=== PATIENT | male | born 1935 | race Caucasian/White ===

== ENCOUNTER 2017-07-26 11:30 | Emergency (ER) | payer BC, MEDICARE ==
[2017-07-26 11:57] LABS: #Eosinphils 0.1 thou/uL (0.0-0.7); #Monocytes 1.7 thou/uL (0.11-0.59); #Neutrophils 12.6 thou/uL (1.40-6.50); %Basophils 0.1 % (0.0-1.0); %Eosinophils 0.3 % (0.0-10.0); %Lymphocytes 6.5 % (21.0-51.0); %Monocytes 10.7 % (0.0-10.0); %Neutrophils 82.3 % (42.0-75.0); Hemoglobin 13.5 g/dL (14.0-18.0); Mean Corpuscular HGB CONC 32.5 g/dL (32.0-36.0); Mean Corpuscular Hemoglobin 31.9 pg (27.0-31.0); Mean Corpuscular Volume 98.1 fl (80.0-94.0); Mean Platelet Volume 7.4 fL (7.4-10.4); Platelet Count 289 thou/uL (130-400); RBC Distribution Width 12.3 % (11.5-14.5); Red Blood Cell (RBC) Count 4.22 mill/uL (4.70-6.10); White Blood Cell (WBC) Count 15.4 thou/uL (4.8-10.8)
[2017-07-26 12:10] LABS: Bilirubin Small (Negative); Blood, Urine Negative (Negative); Clarity CLOUDY (Clear); Glucose, Urine (Dipstick) Negative (Negative); Leukocyte Small (Negative); Nitrite Negative (Negative); Protein, Urine (Dipstick) 30 mg/dL (Neg-Trace); Specific Gravity, Urine 1.027 (1.002-1.036); pH, Urine 5.5 (5.0-9.0)
[2017-07-26 12:14] LABS: Pathc Cast-AUWi Flag 17.88 (0-2.49)
[2017-07-26 12:29] LABS: Bacteria/HPF 2+ HPF (None Seen); Hyaline Casts/LPF 4-6 HYALINE CAST LPF (0-3 Hyaline); Manual Microscopic Reviewed? No Path Casts Seen; RBC/HPF 0-3 HPF (0-3); Transitional Epithelial NONE SEEN HPF (0-3)
[2017-07-26 12:29] LABS: ALT (SGPT) 27 U/L (8-55); AST (SGOT) 26 U/L (5-34); Albumin 3.7 g/dL (3.4-4.8); Alkaline Phosphatase 73 U/L (40-150); Anion Gap 14 mmol/L (10-20); BUN (Urea Nitrogen) 17 mg/dL (8.4-25.7); Bilirubin, Total 0.9 mg/dL (0.2-1.2); CRP (Inflammatory) 26.88 mg/dL (= or < 0.5); Calc. Creatinine Clearance 0 mL/min (70-130); Calcium 9.3 mg/dL (7.8-10.44); Carbon Dioxide 22 mmol/L (23-31); Chloride 102 mmol/L (98-107); Estimated GFR-MDRD 57; Globulin 3.2 g/dL (2.4-3.5); Glucose 111 mg/dL (83-110); Lipase 6 U/L (8-78); Potassium 4.3 mmol/L (3.5-5.1); Protein, Total 6.9 g/dL (5.8-8.1); Sodium 134 mmol/L (136-145)
--- NOTE | 2017-07-26 14:50 | CT ---
CT ABDOMEN AND PELVIS WITH CONTRAST: TECHNIQUE: Multiple axial tomograms obtained through the abdomen and pelvis with iv enhancement. Oral contrast was given. HISTORY: Right lower quadrant pain. FINDINGS: Images through the lung bases show a small focal density anterior right cardiophrenic angle region wh ich appears most consistent with a small focus of pleural-based rounded atelectasis. A tiny low-density focus in the right lobe of the liver is subcentimeter and is too small to adequate ly characterize, possibly tiny cyst. Liver and spleen otherwise unremarkable. Pancreas is unremarka ble. A small fixed sliding diaphragmatic hernia. Adrenal glands unremarkable. There is a cyst in the posterior left kidney measuring 2.8 cm. Kidneys are otherwise unremarkable. No hydronephrosis. The ureter is normal caliber. The urinary bladder is mostly contracted and appears unremarkable. No significant prostatic hypertrophy. Small bowel loops appear unremarkable. The cecum is coiled in the upper right abdomen. The appendix is partially opacified and appears unremarkable. There is a sharp kink in the right colon just above the cecum in the right upper abdomen. Associated with this is mucosal soft tissue opacity which measures up to 2.5 to 3 cm. A mucosal mass at this s ite cannot be excluded and recommend further investigation with colonoscopy. Aorta is normal caliber. No adenopathy identified. IMPRESSION: 1. Area of soft tissue density involving the mucosa of the right colon just above the cecum at the s ite of kinking of the right colon. A mucosal mass should be excluded as discussed above. 2. Left renal cyst. 3. Otherwise, no acute process identified. POS: [facility]
--- NOTE | 2017-07-26 15:48 | RAD ---
FRONTAL VIEW CHEST: Date: 07/26/17 No prior comparison. CLINICAL HISTORY: Cough and fever. FINDINGS: There is abnormal alveolar consolidation localizing to the right upper lobe. Cardiac silhouette is ac centuated by portable technique. Mild patchy left basilar density is present. IMPRESSION: Evidence to indicate right upper lobe pneumonia. Recommend radiographic follow-up upon resolution of acute symptoms and treatment regimen completion to confirm resolution of findings. CODE T. POS: [facility]
[2017-07-26] MEDS ORDERED: ISOVUE-370 76%-LOCM 1 ML ONE (16:06)
[2017-07-26] MEDS ORDERED: Iopamidol 370 76% 50 ML VIAL FS ONE (16:06)
== END 2017-07-26 17:00 | disposition home or self-care (01) ==
LOC: ERS 11:30
DX: K63.89 Other specified diseases of intestine (principal); N39.0 Urinary tract infection, site not specified; I10 Essential (primary) hypertension
CPT/HCPCS: 36415; 71045; 74177; 80053; 81003; 81015; 82550; 83605; 83690; 85025; 86140; 87040; 96361; 96365

== ENCOUNTER 2017-09-28 08:18 | Outpatient (CLI) | payer MEDICARE, BC | END 2017-09-28 08:19 | disposition home or self-care (01) | LOC: BICMRI 08:18 | PROVIDERS: ATTEND Anesthesiology Pain Medicine | DX: M47.896 Other spondylosis, lumbar region (principal); M99.83 Other biomechanical lesions of lumbar region | CPT/HCPCS: 72100; 72148 ==

== ENCOUNTER 2017-11-11 15:06 | Outpatient (CLI) | payer MEDICARE, BC | END 2017-11-11 15:07 | disposition home or self-care (01) | LOC: BICRAD 15:06 | PROVIDERS: ATTEND Family Medicine | DX: M18.11 Unilateral primary osteoarthritis of first carpometacarpal joint, right hand (principal); M19.041 Primary osteoarthritis, right hand ==

== ENCOUNTER 2018-06-07 06:44 | Outpatient (CLI) | payer MEDICARE, BC ==
[2018-06-07 11:04] LABS: #Eosinphils 0.1 thou/uL (0.0-0.7); #Lymphocytes 1.6 thou/uL (1.20-3.40); #Monocytes 0.7 thou/uL (0.11-0.59); #Neutrophils 4.3 thou/uL (1.40-6.50); %Basophils 0.6 % (0.0-1.0); %Eosinophils 1.6 % (0.0-10.0); %Lymphocytes 23.4 % (21.0-51.0); %Monocytes 10.5 % (0.0-10.0); Hemoglobin 14.6 g/dL (14.0-18.0); Mean Corpuscular HGB CONC 32.8 g/dL (32.0-36.0); Mean Corpuscular Hemoglobin 30.7 pg (27.0-31.0); Mean Corpuscular Volume 93.6 fL (78.0-98.0); Mean Platelet Volume 7.9 fL (7.4-10.4); Platelet Count 203 thou/uL (130-400); RBC Distribution Width 12.2 % (11.5-14.5); Red Blood Cell (RBC) Count 4.74 mill/uL (4.70-6.10); White Blood Cell (WBC) Count 6.7 thou/uL (4.8-10.8)
[2018-06-07 11:24] LABS: ALT (SGPT) 47 U/L (8-55); AST (SGOT) 33 U/L (5-34); Albumin 4.4 g/dL (3.4-4.8); Alkaline Phosphatase 70 U/L (40-150); Anion Gap 15 mmol/L (10-20); BUN (Urea Nitrogen) 17 mg/dL (8.4-25.7); Bilirubin, Total 1.6 mg/dL (0.2-1.2); Calc. Creatinine Clearance 0 mL/min (70-130); Calcium 9.7 mg/dL (7.8-10.44); Carbon Dioxide 25 mmol/L (23-31); Chloride 106 mmol/L (98-107); Estimated GFR-MDRD 69; Globulin 2.3 g/dL (2.4-3.5); Glucose 102 mg/dL (83-110); Potassium 5.6 mmol/L (3.5-5.1); Protein, Total 6.7 g/dL (5.8-8.1); Sodium 140 mmol/L (136-145)
== END 2018-06-07 06:45 | disposition home or self-care (01) ==
LOC: LABBT 06:44
PROVIDERS: ATTEND Internal Medicine Cardiovascular Disease
DX: Z01.812 Encounter for preprocedural laboratory examination (principal)
CPT/HCPCS: 80053; 85025

== ENCOUNTER 2018-06-09 05:57 | Day surgery (SDC) | payer MEDICARE, BC ==
[2018-06-07 10:26] VITALS: BMI 22.6
[2018-06-09] MEDS ORDERED: Heparin 10,000 UNITS/1 ML VIAL ONE (06:56)
[2018-06-09] MEDS ORDERED: Verapamil 5 MG/2 ML VIAL ONE (06:56)
[2018-06-09] MEDS ORDERED: Diazepam 5 MG TAB ONE (06:56)
[2018-06-09] MEDS ORDERED: Nitroglycerin 100MG/250ML BOT 250 ML ONE (06:57)
[2018-06-09] MEDS ORDERED: Fentanyl 100 MCG/2 ML VIAL ONE (07:32)
[2018-06-09] MEDS ORDERED: Midazolam HCl 2 mg/2 ml Vial ONE (07:32)
[2018-06-09] MEDS ORDERED: Iopamidol 370 76% 100 ML VIAL ONE (09:33)
== END 2018-06-09 10:30 | disposition home or self-care (01) ==
LOC: CCL 05:57
PROVIDERS: ATTEND Internal Medicine Cardiovascular Disease
PROC: 4A023N7 Measurement of Cardiac Sampling and Pressure, Left Heart, Percutaneous Approach (ICD-10-PCS; principal; 2018-06-09)
PROC: B2111ZZ Fluoroscopy of Multiple Coronary Arteries using Low Osmolar Contrast (ICD-10-PCS; 2018-06-09)
DX: I25.10 Atherosclerotic heart disease of native coronary artery without angina pectoris (principal); Q24.5 Malformation of coronary vessels; M10.9 Gout, unspecified; E07.9 Disorder of thyroid, unspecified; E78.5 Hyperlipidemia, unspecified; E78.00 Pure hypercholesterolemia, unspecified; Z79.82 Long term (current) use of aspirin; Z79.899 Other long term (current) drug therapy
CPT/HCPCS: 93458; 99152; C1769; J1644; J2250; J3010; Q9967

== ENCOUNTER 2019-03-08 12:22 | Outpatient (CLI) | payer MEDICARE, BC ==
--- NOTE | 2019-03-08 13:47 | CT ---
CT ABDOMEN AND PELVIS WITH IV CONTRAST: 03/08/2019 PROVIDED CLINICAL HISTORY: Abdominal pain. COMPARISON: 07/26/2017 FINDINGS: The visualized lung bases are free of significant opacity. There is a simple appearing left renal cyst. The solid abdominal organs demonstrate an otherwise unre markable CT appearance. There is no bowel dilatation, inflammatory fat stranding, free fluid or lymph node enlargement appare nt. There is moderate colonic fecal retention. Scattered vascular calcifications are seen. The osseous structures demonstrate no concerning lytic or blastic lesions. IMPRESSION: 1. No evidence for an acute process. 2. Moderate colonic fecal retention that may reflect constipation. POS: [facility]
== END 2019-03-08 12:23 | disposition home or self-care (01) ==
LOC: BICCT 12:22
PROVIDERS: ATTEND Family Medicine
DX: R10.84 Generalized abdominal pain (principal); R11.0 Nausea; R42 Dizziness and giddiness; K59.00 Constipation, unspecified
CPT/HCPCS: 74177

== ENCOUNTER 2020-02-15 12:11 | Outpatient (CLI) | payer MEDICARE, BC ==
--- NOTE | 2020-02-15 13:56 | ULT ---
Thyroid ultrasound: 02/15/2020 COMPARISON: None available HISTORY: Thyroid nodule TECHNIQUE: Multiplanar grayscale sonographic imaging of the thyroid gland obtained. FINDINGS: Thyroid isthmus measures 3 mm in AP dimension. The right lobe of thyroid gland measures 4.7 x 1.9 x 1.1 cm and the left lobe of the thyroid gland me asures 4.5 x 1.4 x 0.7 cm. There is a vague/subtle solid appearing hypoechoic nodule in the midportion of the right lobe measuri ng 9 x 5 x 7 mm. Anteriorly within the mid portion of the right lobe there is a 10 x 5 x 9 mm solid hypoechoic nodule. Within the inferior aspect of the left lobe there is a isoechoic solid 7 x 5 x 9 mm nodule. IMPRESSION:TI RADS 4-moderately suspicious. Given nodule of 1 cm in size, one year follow-up examinat ion advised. At this time, no nodule is large enough to warrant fine-needle aspiration.
== END 2020-02-15 12:12 | disposition home or self-care (01) ==
LOC: BICULT 12:11
PROVIDERS: ATTEND Internal Medicine Cardiovascular Disease
DX: E04.1 Nontoxic single thyroid nodule (principal)
CPT/HCPCS: 76536

== ENCOUNTER 2020-02-23 08:08 | Outpatient (CLI) | payer MEDICARE, BC ==
--- NOTE | 2020-02-23 10:16 | MRI ---
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 COMPARISON: None Correlation: Brain MRI 01/30/2020 TECHNIQUE: MR imaging of the [place] is performed in the axial plane utilizing 3-D time-of-f light imaging FINDINGS: Absent restricted diffusion Symmetric flow related signal in the distal cervical and intracranial internal carotid arteries. Anterior circulation: Symmetric flow related signal in the A1 segments, proximal A2 segments, M1 segm ents and proximal MCA branches. Posterior circulation: Visualized distal cervical and intracranial vertebral arteries have appropriat e flow related signal. Bilateral PICA artery origins have appropriate flow related signal. Both vertebral arteries supply a normal appearing basilar artery. Appropriate flow related signal in the b asilar artery and bilateral P1 segments IMPRESSION: No significant stenosis, occlusion or aneurysm at the level of the [place].
== END 2020-02-23 08:09 | disposition home or self-care (01) ==
LOC: BICMRI 08:08
PROVIDERS: ATTEND Family Medicine
DX: R41.3 Other amnesia (principal)
CPT/HCPCS: 70544

== ENCOUNTER 2021-12-15 09:04 | Outpatient (CLI) | payer MEDICARE, BC | END 2021-12-15 09:05 | disposition home or self-care (01) | LOC: ULT 09:04 | PROVIDERS: ATTEND Family Medicine | DX: R17 Unspecified jaundice (principal) | CPT/HCPCS: 76705 ==

== ENCOUNTER 2022-11-11 13:25 | Outpatient (CLI) | payer MEDICARE, BC | END 2022-11-11 13:26 | disposition home or self-care (01) | LOC: MRI 13:25 | PROVIDERS: ATTEND Anesthesiology Pain Medicine | DX: M51.16 Intervertebral disc disorders with radiculopathy, lumbar region (principal); M48.061 Spinal stenosis, lumbar region without neurogenic claudication; M48.07 Spinal stenosis, lumbosacral region | CPT/HCPCS: 72148 ==